=== PATIENT | male | born 2000 | race Hispanic/Latino ===

== ENCOUNTER 2023-12-01 19:15 | Emergency (ER) | payer BC, OTHER ==
[~2023-12-01] VITALS: Ht 165.1 cm; Wt 55.8 kg
[2023-12-01] MEDS: KETOROLAC 15MG/ML VIAL (15MG/ML) IM STA (20:46)
[2023-12-01] MEDS ORDERED: NAPR-1192 PO (21:28)
[2023-12-01 21:30] VITALS: BP 110/62; PULSE 84; RESP 18; O2SAT 97
== END 2023-12-01 21:37 | disposition home or self-care (01) ==
LOC: EDH 19:15
DX: M79.672 Pain in left foot (principal)
CPT/HCPCS: 99284; 73630; 96372; J1885